=== PATIENT | female | born 1990 | race Caucasian/White ===

== ENCOUNTER → 2019-07-26 09:37 | Outpatient (BNVA) | payer SELFPAY | PROVIDERS: Family Provider Family Medicine; PCP Nurse Practitioner Family; Visit Provider Registered Nurse | DX: N91.2 Amenorrhea, unspecified (principal); M62.08 Separation of muscle (nontraumatic), other site | CPT/HCPCS: 80053; 81000; 84443; 85025 ==

== ENCOUNTER 2019-08-02 11:36 | Outpatient (CLI) | payer SELFPAY ==
--- NOTE | 2019-08-02 11:45 | CT_ITS ---
WS: [id number] CT ABDOMEN CONTRAST TECHNIQUE: Contrast enhanced CT of the abdomen with coronal and sagittal reformatted images. CLINICAL INFORMATION: abdominal pain - diastasis of rectus abdominis DLP: 840.[address] scans at [facility] use at least one of these dose optimization techniques: automat ed exposure control; mA and/or kV adjustment per patient size (includes targeted exams where dose is matched to clinical indication); or iterative reconstruction. FINDINGS: Diffuse fatty infiltration of the liver. Normal portal vein and splenic vein. Normal gallbladder. Adr enal glands are normal. Normal spleen. Normal GE junction. Lung bases are well aerated. Normal visual ized pancreas. Adrenal glands are normal. Normal renal parenchymal enhancement. No hydronephrosis. No rmal caliber abdominal aorta. A few shoddy periaortic lymph nodes. Small right paracentral supraumbilical hernia containing omental fat. Small hernia mouth measures 1.8 cm. No herniated bowel Diastases of the rectus abdominous musculature worse in the mid and lower abd omen with thinning of the ventral abdominal wall. Maximum diastases measures 11.6 CM. No other focal herniations or herniated bowel. Normal visualized lumbar spine. CT/CT abdomen w con* [id number] IMPRESSION: 1. Diffuse fatty infiltration of the liver. 2. Small right pericentral supraumbilical hernia containing omental fat. Herni a mouth measures 1.7 CM. No herniated bowel. 3. Diastases of the rectus abdominis musculature more prominent in the mid and lower abdomen with chronic thinning of the ventral abdominal wall. No other fo nahomi herniations. No herniated bowel.
[2019-08-02] MEDS: iohexol 300 mg/mL 50 mL Btl PO (12:02)
[2019-08-02] MEDS: iohexol 300 mg/mL 100 mL Btl IV (12:51)
== END 2019-08-02 11:37 | disposition home or self-care (01) ==
LOC: RADWPI 11:51
PROVIDERS: Family Provider Family Medicine; PCP Nurse Practitioner Family; Visit Provider Registered Nurse
DX: M62.08 Separation of muscle (nontraumatic), other site (principal); K76.0 Fatty (change of) liver, not elsewhere classified; K43.9 Ventral hernia without obstruction or gangrene
CPT/HCPCS: 74160; Q9967

== ENCOUNTER → 2019-08-08 16:21 | Outpatient (BNVA) | payer SELFPAY | PROVIDERS: Family Provider Family Medicine; PCP Nurse Practitioner Family; Visit Provider Nurse Practitioner Women's Health | DX: N91.2 Amenorrhea, unspecified (principal); Z12.4 Encounter for screening for malignant neoplasm of cervix | CPT/HCPCS: 84146; 84702; 88175 ==

== ENCOUNTER → 2019-08-20 10:51 | Outpatient (BNVA) | payer SELFPAY | PROVIDERS: Family Provider Family Medicine; PCP Nurse Practitioner Family; Visit Provider Nurse Practitioner Women's Health | DX: N91.2 Amenorrhea, unspecified (principal); R19.09 Other intra-abdominal and pelvic swelling, mass and lump | CPT/HCPCS: 76830 ==

== ENCOUNTER → 2019-09-11 12:44 | Outpatient (BNVA) | payer MEDICAID, SELFPAY | PROVIDERS: PCP Nurse Practitioner Family; Visit Provider Nurse Practitioner Women's Health | DX: N91.2 Amenorrhea, unspecified (principal) | CPT/HCPCS: 88305 ==

== ENCOUNTER → 2020-07-02 10:37 | Outpatient (BNVA) | payer MEDICAID, SELFPAY | PROVIDERS: PCP Registered Nurse; Visit Provider Registered Nurse | DX: N91.2 Amenorrhea, unspecified (principal); F17.210 Nicotine dependence, cigarettes, uncomplicated | CPT/HCPCS: 80053; 84443; 85025 ==

== ENCOUNTER 2020-07-22 13:56 | Outpatient (CLI) | payer MEDICAID, SELFPAY ==
--- NOTE | 2020-07-22 14:36 | CT_ITS ---
WS: [id number] CT ABDOMEN WITH CONTRAST HISTORY: VENTRAL HERNIA, UPPER ABDOMINAL PAIN Contiguous single phase 5 mm axial imaging performed to the abdomen. Oral contrast has been provided. Coronal and sagittal reformats are submitted. All CT scans at [facility] use at least on e of these dose optimization techniques: automated exposure control; mA and/or kV adjustment per daniel ent size (includes targeted exams where dose is matched to clinical indication); or iterative reconst ruction. CONTRAST: Omnipaque 300; 95 mL IV. DLP: 815.25 mGycm COMPARISON: 08/02/2019 Lower thorax: Unremarkable. Liver: Mild diffuse hepatic steatosis. No bile duct dilatation. Liver is moderately enlarged extendin g over length of 20 cm. Gallbladder: Normally distended gallbladder. There is some very mild heterogeneity within the lumen o f the gallbladder may be a stone but more likely artifact. Pancreas: Normal. Spleen: Top normal size spleen at 13 cm in length. Adrenals: Normal. Right kidney: Nonobstructing 3 mm calcification in the upper pole. No obstruction or mass. Left kidney: Normal. Aorta: Normal. GI tract: Normal appearance of the visualized GI tract. The appendix is normal. No obstruction. No adenopathy or free fluid. Abdominal wall: Supraumbilical fat-containing hernia to the RIGHT of midline. Orifice measures 2.0 cm . This was also present on the prior study with no interval change. There is widening and diastases o f the abdominal rectus muscles. No interval change. Visualized osseous structures: Unremarkable. CT/CT abdomen w con* [id number] IMPRESSION: 1. Supraumbilical RIGHT abdominal wall hernia containing fat only is stable si nce 08/02/2019. 2. Diastases of the rectus abdominis muscle. No interval change. 3. Moderate hepatic steatosis and hepatomegaly. 4. Spleen is top normal size. 5. Very mild increased density in the lumen of the gallbladder may be an artif act. To evaluate the gallbladder further consider follow-up with ultrasound RIG HT upper quadrant.
[2020-07-22] MEDS: iohexol 300 mg/mL 50 mL Btl PO (14:38)
[2020-07-22] MEDS: iohexol 300 mg/mL 100 mL Btl IV (15:19)
== END 2020-07-22 13:57 | disposition home or self-care (01) ==
PROVIDERS: PCP Registered Nurse; Visit Provider Surgery
DX: K43.9 Ventral hernia without obstruction or gangrene (principal); R10.10 Upper abdominal pain, unspecified; Q79.59 Other congenital malformations of abdominal wall; K76.0 Fatty (change of) liver, not elsewhere classified; R16.0 Hepatomegaly, not elsewhere classified
CPT/HCPCS: 74160; Q9967

== ENCOUNTER → 2022-09-20 11:28 | Outpatient (BNVA) | payer MEDICAID, SELFPAY | PROVIDERS: PCP Registered Nurse; Visit Provider Registered Nurse | DX: L73.2 Hidradenitis suppurativa (principal) | CPT/HCPCS: 80053; 83036; 85025 ==

== ENCOUNTER → 2023-03-08 09:17 | Outpatient (BNVA) | payer MEDICAID, SELFPAY | PROVIDERS: PCP Registered Nurse; Visit Provider Registered Nurse | DX: E11.9 Type 2 diabetes mellitus without complications (principal) | CPT/HCPCS: 80053; 82607; 83036; 84403 ==